=== PATIENT | male | born 1960 | race Caucasian/White ===

== ENCOUNTER → 2018-04-08 13:32 | Outpatient (CLI) | payer OTHER, SELFPAY ==
[2018-04-08 16:03] LABS: Vitamin D 25 Hydroxy (D3) 26.6 ng/mL (30.0-100.0)
== END ==
PROVIDERS: Visit Provider Internal Medicine
DX: C43.4 Malignant melanoma of scalp and neck (principal); C79.9 Secondary malignant neoplasm of unspecified site
CPT/HCPCS: 36415; 82306

== ENCOUNTER → 2019-07-23 10:38 | Outpatient (CLI) | payer OTHER, SELFPAY ==
[2019-07-23 12:06] LABS: Cholesterol 262 mg/dL (140-199); HDL Cholesterol 106 mg/dL (40-60); LDL Cholesterol Calculated 143 mg/dL (<100); Triglycerides 64 mg/dL (35-150)
[2019-07-23 12:23] LABS: Vitamin D 25 Hydroxy (D3) 58.8 ng/mL (30.0-100.0)
[2019-07-23 12:38] LABS: Prostate Specific Antigen Scrn 0.198 ng/mL (0.1-4.0)
[2019-07-25 21:15] LABS: Fecal Immunochemical Test NOT DETECTED (NOT DETECTED)
== END ==
PROVIDERS: PCP Student in an Organized Health Care Education/Training Program; Visit Provider Student in an Organized Health Care Education/Training Program
DX: Z12.11 Encounter for screening for malignant neoplasm of colon (principal); Z12.5 Encounter for screening for malignant neoplasm of prostate; T45.2X1A Poisoning by vitamins, accidental (unintentional), initial encounter; Z13.220 Encounter for screening for lipoid disorders
CPT/HCPCS: 36415; 80061; 82274; 82306; G0103

== ENCOUNTER 2020-09-03 12:30 | Outpatient (RCR) | payer OTHER, SELFPAY ==
--- NOTE | 2020-08-01 16:49 | ST.OPIE ---
Visit Care Team Role Provider Type Michael Moore MD Attending Provider Physician Primary Care Provider Referring Provider Specialty: Internal Medicine Address: [address] [place] [address], [address], [place], [address] Email: [email or web address] Speech-Language Pathology Initial Evaluation [employer]IP[employer] MACHINE Adult Cognitive Linguistic Eval Start: 08/01/20 12:25 Freq: Status: Active Protocol: Document 08/01/20 12:25 NUPUR (Rec: 08/01/20 12:26 NUPUR [email or web address]) Adult Cognitive Linguistic Evaluation Session Time Visit Start Time 12:30 Visit Stop Time 13:20 Total Visit Minutes 50 Visit Information Visit Number Initial Evaluation Plan of Care Dates 08/01/20 - 10/31/20 Insurance Information [facility] Referral Referring Provider Dr. 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 Dementia is atypical (e.g., pt function improves as the day progresses); type has not been identified but suspected Lewey body, per spouse report. The pt and his report the following impacts on function : Pt is, or worries about, losing items at home; experiences WFDs and lags in processing; is reading less; and gets overwhelmed cognitively and subsequently fatigued. He is disoriented to time and space and confused while attempting to navigate his home. Spouse reports he is aware of deficits, which contributes to depression. 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 He is still able to walk several miles at a time and does so with a hired assistant auditor. 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 Assessment Oral Motor Examination Completed No Informal Assessment Receptive Language Normal Slowed processing; WFL in simple conversation. Needs further assessment. Expressive Language Normal Slowed processing; WFL in simple conversation. Needs further assessment. Pragmatic Language Normal Yes Pragmatic Language Impairment(s) Flat affect Speech Normal Yes Cognition Normal No Cognitive Impairment(s) Orientation,Short-term memory, Executive functioning, Reasoning,Thought organization Formal Assessment Standardized Test/Screener Type [facility] Status ([facility]) Administration Complete Results 11/07 - Consistent with dementia Orientation: Oriented to state ; not oriented to day or year (stated 1961) Immediate Memory: 2/5 objects in list Delayed Memory: 0/5 objects in list Mental Calculations: Able to perform simple addition; incorrect subtraction. Divergent Namin animals + 2 insects; repetition of 2 animals Number Reversal: 3 digits Clock Drawing/Executive Function: With effort and extended time, included 12 numbers, all but two of them on the right side of the clock . Unable to set hands. The pt was aware of error in number placement but unable to correct. Visuospatial: Placed an X in the triangle and identified largest shape. Story Recall/Comprehension: 3/ 4 questions. Following administration of the assessment, the pt and his informed that the pt has taken this assessment several times in recent past. The pt stated he remembered the story , and his stated that he is showing improvement in divergent naming, addition, and story recall. Today's score, then, may reflect learning effect. The pt and identified 4 goals for treatment: The pt would like to enjoy reading again and be able to find and read news on the computer. His would like to have the pt increase vocal loudness for speech intelligibility and to improve word recall skills. Education and feedback was provided and POC proposed. Pt and were in agreement. Findings/Results Cognitive Function Severely impaired Findings The pt presents with severe cognitive linguistic deficits secondary to dementia. Expressive and receptive language skills require further assessment. The pt exhibits and spouse reports slow processing speeds impacting his ability to follow and participate in rapid and/or complex conversation. Pt/spouse report reduced reading comprehension and significant word finding difficulties, which further impact his ability to participate in conversations, communicate wants and needs, and enjoy hobbies, thereby decreasing quality of life. Skilled intervention is medically necessary for pt/ family education, to modify the pt's environment, and to train compensatory strategies to increase his independence and ability to participate in functional tasks, and to improve quality of life. Cognitive Communication Deficits Self-awareness of Cognitive- Situational awareness ( Communication Deficits recognition of problem in context;in real time) Impact on Functioning Activity Limits/Particip.Rest. Sev: General Tasks and Demands Household Tasks Interpersonal Interactions Community Comment Pt activity is limited. Per : He is mostly my shadow. Safety Risks Sev: Being Left Alone at Home Reacting to Emergency Managing Medication Traveling Alone in Community Prognosis Prognosis Fair Based on Cognitive status,Family support Plan of Care Speech-Language Treatment Yes Frequency 1x/wk for 8 wks Patient/Caregiver Education Described results of evaluation,Patient expressed understanding of evaluation, Patient expressed agreement with goals and treatment plans ,Family/caregivers expressed understanding of evaluation, Family/caregivers expressed agreement with goals and treatment plan,Patient requires further education/ training,Family/caregivers require further education/ training Short Term Goals 1. The pt will participate in further assessment of expressive and receptive language skills to identify strengths and deficits and guide POC. 2. The pt/ will participate in establishing environmental modifications and external memory tools to increase the pt's independence and ability to perform functional tasks. 3. Using compensatory strategies and/or alternative presentation methods (e.g., audio books), the pt will demonstrate skills adequate to comprehend simple written text to increase his ability to participate in hobbies and improve quality of life. 4. The pt will follow simple written instructions with 80% accuracy to improve independence in completing simple tasks. 5. The pt will perform vocal exercises (e.g., sustained phonation, oral reading of functional phrases) with loudness levels WNL with 80% acc to maintain/improve speech intelligibility. 6. The pt will complete convergent naming tasks using a visual aid and with mod v/v cues with 75% accuracy to improve word recall skills for functional communication. Entomology Professor Goals 1. The pt will use external memory tools in home environment with modified independence to increase orientation, independence, and QOL. 2. The pt will engage with written material, either via independent reading or via audio books/recordings, as desired to increase ability to participate in hobbies and improve QOL, as measured by pt /spouse report and clinician judgment. 3. The pt will exhibit 85% or greater speech intelligibility in functional communication opportunities to increase his ability to express wants/needs , as measured by pt/spouse report and clinician judgment. 4. Using compensatory word recall skills and/or with prompts from others (e.g., phonemic cuing), the pt will exhibit word recall WFL, as measured by pt/spouse report and clinician judgment. Discharge Recommendations Home,Outpatient therapy
--- NOTE | 2020-08-14 10:59 | ST.OPTN ---
Visit Care Team Role Provider Type Michael Moore MD Attending Provider Physician Primary Care Provider Referring Provider Address: [address] [place] [address], [address], [address] MACHINE DESIGN ENGINEER Treatment Note MACHINE DESIGN ENGINEER Treatment Note Start: 08/01/20 12:25 Freq: Status: Active Protocol: Document 08/08/20 14:22 NUPUR (Rec: 08/08/20 14:33 NUPUR [id number]) Speech Pathology Treatment Note Session Time Visit Start Time 13:30 Visit Stop Time 14:18 Total Visit Minutes 48 Visit Information Visit Number 11/18 Setting Treatment Setting Outpatient Care Visit Type Note Type Treatment Note Next Note Type Next Note Type Treatment Note Subjective Identification Type Name,ID Card Observations/Patient Presentation The pt arrived on time accompanied by a friend who was not present during the session. Chief Complaint(s) Language,Cognitive Patient Knowledge/Awareness of MACHINE DESIGN ENGINEER Role Fair in Treatment Objective Treatment Activities Continued assessment of expressive, receptive and cognitive communication skills with a variety of subtests taken from the [place] Diagnostic Aphasia Exam (BDAE) , the Scales of Cognitive and Communicative Ability for Neurorehabilitation (SCCAN), and Cognitive Linguistic Quick Test (CLQT) with the following results: EXPRESSIVE LANGUAGE: Confrontational Namin/10 Picture Identification from Oral Description: 08/18 Convergent Namin/5 Picture Description (Shayruben Harika): Appropriate content with min cues, syntax and word choices/recall WNL. Automatic Speech: Days of week and counting to 21, 100% acc; Pt stated he forgot to which number he was supposed to count, requiring repetition of instructions x1. Written Expression: Pt copied sentence (quick brown oliveros...), wrote name in prink and cursive, and dictated letters and numbers with 100% acc. He correctly spelled 5/6 phonetic words (83% acc, writing OG for go) and 1/3 words of irregular spelling (33% acc, writing knif for knife and cooup for cough). RECEPTIVE LANGUAGE: Story Retell (oral presentation): 10/26 details ( 67% acc) Story Recall (answering questions based on oral story presentation): / Composite Story Retelling score based on CLQT: 60% acc Reading Schedule: 11/09 Pictoral Sign Comprehension: 3 /3 Written Word Recognition: 06/16 Sentence/Phrase Reading Comprehension: 04/14 Medicine Label Reading Comprehension: 1/3 (33%) Following Oral Commands: Simple 2- and 3-step commands, 100%; Complex 2-step command, 4/5 (80%) Auditory Comprehension of Complex Ideational Material: Trained pt in steps to locating news feed on iPad. The pt independently completed task x1 following immediate MACHINE DESIGN ENGINEER demonstration (adequate immediate recall). After that, the pt completed the first step and required verbal instruction with demonstration for remaining steps (reduced delayed recall). Assessment Rehab Potential Fair Impairments Identified Cognitive-Linguistic Skills, Dementia,Expressive Language, Memory - Short Term,Memory - Working,Receptive Language Assessment of Overall Progress Unchanged Assessment of Improvement The pt presents with mild to moderate deficits in expressive and receptive language skills, with deficits increasing as complexity and length of task increases and impacted by memory impairments . The pt exhibited adequate immediate recall and reduced delayed recall of steps to a functional task. Will continue training of task using errorless learning technique and assess ability to follow simple written instructions at next session. Reviewed with Patient Goals,Home Exercise Program Patient/Caregiver Understanding Good Plan Amount of Therapy Recommended 2-3 Months Frequency of Treatment Once a Week Length of Session 45 Minutes Treatment Emphasis Next Session Cont training of news feed on iPad with written instructions Therapeutic Contents Client Education,Cognitive- Linguistic Training,Expressive Language Training,Home Exercise Program,Information Processing,Receptive Language Training Provided Patient/Caregiver Instruction Home Exercise Program,Plan of Care,Questions/Concerns Therapy Recommendations Continue with Current Program
--- NOTE | 2020-08-14 11:09 | ST.OPTN ---
Visit Care Team Role Provider Type Michael Moore MD Attending Provider Physician Primary Care Provider Referring Provider Address: [address] [place] [address], [address], [place], [address] RN CVOR Treatment Note RN CVOR Treatment Note Start: 08/01/20 12:25 Freq: Status: Active Protocol: Document 08/08/20 14:22 NUPUR (Rec: 08/08/20 14:33 NUPUR [email or web address]) Speech Pathology Treatment Note Session Time Visit Start Time 13:30 Visit Stop Time 14:18 Total Visit Minutes 48 Visit Information Visit Number 11/18 Plan of Care Dates 08/01/20 - 10/31/20 Insurance Information [facility] Setting Treatment Setting Outpatient Care Visit Type Note Type Treatment Note Next Note Type Next Note Type Treatment Note General Information General Information The pt is a 59-yr-old male diagnosed last year with 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 Dementia is atypical (e.g., pt function improves as the day progresses); type has not been identified but suspected Lewey body, per spouse report. The pt and his report the following impacts on function : Pt is, or worries about, losing items at home; experiences WFDs and lags in processing; is reading less; and gets overwhelmed cognitively and subsequently fatigued. He is disoriented to time and space and confused while attempting to navigate his home. Spouse reports he is aware of deficits, which contributes to depression. 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 He is still able to walk several miles at a time and does so with a hired orthopedic physician assistant. Subjective Identification Type Name,ID Card Observations/Patient Presentation The pt arrived on time accompanied by a friend who was not present during the session. Chief Complaint(s) Language,Cognitive Rehab Expectation/Goals: Patient Goals Find and read news reports on the computer Rehab Expectation/Goals: Parent/Guardian ` /General Duty Nurse Goals Patient Knowledge/Awareness of RN CVOR Role Fair in Treatment Objective Short Term Goals 1. The pt will participate in further assessment of expressive and receptive language skills to identify strengths and deficits and guide POC. GOAL MET 2. The pt/ will participate in establishing environmental modifications and external memory tools to increase the pt's independence and ability to perform functional tasks. 3. Using compensatory strategies and/or alternative presentation methods (e.g., audio books), the pt will demonstrate skills adequate to comprehend simple written text to increase his ability to participate in hobbies and improve quality of life. 4. The pt will follow simple written instructions with 80% accuracy to improve independence in completing simple tasks. 5. The pt will perform vocal exercises (e.g., sustained phonation, oral reading of functional phrases) with loudness levels WNL with 80% acc to maintain/improve speech intelligibility. 6. The pt will complete convergent naming tasks using a visual aid and with mod v/v cues with 75% accuracy to improve word recall skills for functional communication. Production Intern Goals 1. The pt will use external memory tools in home environment with modified independence to increase orientation, independence, and QOL. 2. The pt will engage with written material, either via independent reading or via audio books/recordings, as desired to increase ability to participate in hobbies and improve QOL, as measured by pt /spouse report and clinician judgment. 3. The pt will exhibit 85% or greater speech intelligibility in functional communication opportunities to increase his ability to express wants/needs , as measured by pt/spouse report and clinician judgment. 4. Using compensatory word recall skills and/or with prompts from others (e.g., phonemic cuing), the pt will exhibit word recall WFL, as measured by pt/spouse report and clinician judgment. Treatment Activities Continued assessment of expressive, receptive and cognitive communication skills with a variety of subtests taken from the [place] Diagnostic Aphasia Exam (BDAE) , the Scales of Cognitive and Communicative Ability for Neurorehabilitation (SCCAN), and Cognitive Linguistic Quick Test (CLQT) with the following results: EXPRESSIVE LANGUAGE: Confrontational Namin/10 Picture Identification from Oral Description: 08/18 Convergent Namin/5 Picture Description (Tina Shabazz): Appropriate content with min cues, syntax and word choices/recall WNL. Automatic Speech: Days of week and counting to 21, 100% acc; Pt stated he forgot to which number he was supposed to count, requiring repetition of instructions x1. Written Expression: Pt copied sentence (quick brown oliveros...), wrote name in prink and cursive, and dictated letters and numbers with 100% acc. He correctly spelled 5/6 phonetic words (83% acc, writing OG for go) and 1/3 words of irregular spelling (33% acc, writing knif for knife and cooup for cough). RECEPTIVE LANGUAGE: Story Retell (oral presentation): 10/26 details ( 67% acc) Story Recall (answering questions based on oral story presentation): 01/09 Composite Story Retelling score based on CLQT: 60% acc Reading Schedule: 11/09 Pictoral Sign Comprehension: Written Word Recognition: 06/16 Sentence/Phrase Reading Comprehension: 04/14 Medicine Label Reading Comprehension: 11/11 (33%) Following Oral Commands: Simple 2- and 3-step commands, 100%; Complex 2-step command, 45 (80%) Auditory Comprehension of Complex Ideational Material: Trained pt in steps to locating news feed on iPad. The pt independently completed task x1 following immediate RN CVOR demonstration (adequate immediate recall). After that, the pt completed the first step and required verbal instruction with demonstration for remaining steps (reduced delayed recall). Assessment Rehab Potential Fair Impairments Identified Cognitive-Linguistic Skills, Dementia,Expressive Language, Memory - Short Term,Memory - Working,Receptive Language Assessment of Overall Progress Unchanged Assessment of Improvement The pt presents with mild to moderate deficits in expressive and receptive language skills, with deficits increasing as complexity and length of task increases and impacted by memory impairments . The pt exhibited adequate immediate recall and reduced delayed recall of steps to a functional task. Will continue training of task using errorless learning technique and assess ability to follow simple written instructions at next session. Reviewed with Patient Goals,Home Exercise Program Patient/Caregiver Understanding Good Plan Amount of Therapy Recommended 2-3 Months Frequency of Treatment Once a Week Length of Session 45 Minutes Treatment Emphasis Next Session Cont training of news feed on iPad with written instructions Therapeutic Contents Client Education,Cognitive- Linguistic Training,Expressive Language Training,Home Exercise Program,Information Processing,Receptive Language Training Provided Patient/Caregiver Instruction Home Exercise Program,Plan of Care,Questions/Concerns Therapy Recommendations Continue with Current Program
--- NOTE | 2020-08-20 18:13 | ST.OPTN ---
Visit Care Team Role Provider Type Michael Moore MD Attending Provider Physician Primary Care Provider Referring Provider Address: [address] [place] [address], [address], [place], [address] [facility] GR[facility]ONE MILL Treatment Note [facility] GR[employer] Treatment Note Start: 08/01/20 12:25 Freq: Status: Active Protocol: Document 08/15/20 17:57 NUPUR (Rec: 08/20/20 18:13 NUPUR [id number]) Speech Pathology Treatment Note Session Time Visit Start Time 14:30 Visit Stop Time 15:15 Total Visit Minutes 45 Visit Information Visit Number 12/19 Plan of Care Dates 08/01/20 - 10/31/20 Insurance Information [facility] Setting Treatment Setting Outpatient Care Visit Type Note Type Treatment Note Next Note Type Next Note Type Treatment Note General Information General Information The pt is a 59-yr-old male diagnosed last year with dementia following ionizing radiation injury from treatment of metastatic malignant melanoma of head and neck (stage 4, early 2014, received care from [facility]). Dementia is atypical (e.g., pt function improves as the day progresses); type has not been identified but suspected Lewey body, per spouse report. The pt and his report the following impacts on function : Pt is, or worries about, losing items at home; experiences WFDs and lags in processing; is reading less; and gets overwhelmed cognitively and subsequently fatigued. He is disoriented to time and space and confused while attempting to navigate his home. Spouse reports he is aware of deficits, which contributes to depression. 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 He is still able to walk several miles at a time and does so with a hired oceanographer assistant. Subjective Identification Type Name,ID Card Observations/Patient Presentation The pt arrived on time accompanied by his , Kathy, who was present and participatory throughout the session. Both the pt and spouse reported the pt experiences periods of losing his place and/or the flow of content when reading, making it very difficult for him to participate in reading tasks per PLOF and as desired for enjoyment. Chief Complaint(s) Language,Cognitive Rehab Expectation/Goals: Patient Goals Find and read news reports on the computer Rehab Expectation/Goals: Parent/Guardian ` /Decal Maker Goals Patient Knowledge/Awareness of [employer] MILL Role Fair in Treatment Objective Short Term Goals 1. The pt will participate in further assessment of expressive and receptive language skills to identify strengths and deficits and guide POC. GOAL MET 2. The pt/ will participate in establishing environmental modifications and external memory tools to increase the pt's independence and ability to perform functional tasks. 3. Using compensatory strategies and/or alternative presentation methods (e.g., audio books), the pt will demonstrate skills adequate to comprehend simple written text to increase his ability to participate in hobbies and improve quality of life. 4. The pt will follow simple written instructions with 80% accuracy to improve independence in completing simple tasks. 5. The pt will perform vocal exercises (e.g., sustained phonation, oral reading of functional phrases) with loudness levels WNL with 80% acc to maintain/improve speech intelligibility. 6. The pt will complete convergent naming tasks using a visual aid and with mod v/v cues with 75% accuracy to improve word recall skills for functional communication. [employer] Goals 1. The pt will use external memory tools in home environment with modified independence to increase orientation, independence, and QOL. 2. The pt will engage with written material, either via independent reading or via audio books/recordings, as desired to increase ability to participate in hobbies and improve QOL, as measured by pt /spouse report and clinician judgment. 3. The pt will exhibit 85% or greater speech intelligibility in functional communication opportunities to increase his ability to express wants/needs , as measured by pt/spouse report and clinician judgment. 4. Using compensatory word recall skills and/or with prompts from others (e.g., phonemic cuing), the pt will exhibit word recall WFL, as measured by pt/spouse report and clinician judgment. Treatment Activities Educated pt/spouse on assessment results. Assessed pt's reading skills with and without use of visual marker. The pt read 2 paragraphs of prose exhibiting 2 episodes of getting stuck, one of which he resolved independently when given extended time. The other episode was unresolved and the pt expressed frustration. He was able to follow [facility] [facility] v/v prompts redirecting him to a reasonable re-starting place and then continued to successfully read the paragraph. When asked to summarize one of the paragraphs, he accurately identified main topic and characters and a delacruz detail. Attempted to continue training of pt in locating news on an iPad with use of simple written instructions and demonstration. However, the pt 's spouse stated she did not feel this was an effective target for tx d/t the pt's inability to progress with reading tasks once he gets stuck. Rationale was based on similar exeriences when the pt attempts to read news on the computer that his sets up for him. The pt agreed , and the task was abandoned. The topic of using audiobooks was revisited, and the [facility]ONE MILL agreed to contact the local library for assesstance and/or resources. Introduced the pt/spouse to [employer] Therapy josesito with presentation of 3 reading tasks, which the pt was able to perform with initial guidance. Agreed that this tool may be good to target the Use it or lose it and Use it and improve it principles of neuroplasticity to slow disease progression. The pt expressed interest, and an account was established for further assessement of its effectiveness. Will f/u at next session. Assessment Patient Response to Treatment Fair Rehab Potential Fair Impairments Identified Cognitive-Linguistic Skills, Dementia,Expressive Language, Memory - Short Term,Memory - Working,Receptive Language Assessment of Overall Progress Unchanged Assessment of Improvement The pt demonstrated strengths in reading aloud and comprehension of short simple texts. However, he exhibited episodes of delayed or loss of processing, which interfered with his ability to complete tasks with enjoyment. Such episodes resulted in increased pt anxiety and expressed frustration. He was stimulable to structured tasks on Constant Therapy training josesito, and agreeable to a trial period of home practice to determine if this may be a good tool for ongoing cognitive and language stimulation to reduce rate of disease progression. Reviewed with Patient Goals,Home Exercise Program Patient/Caregiver Understanding Good Plan Amount of Therapy Recommended 2-3 Months Frequency of Treatment Once a Week Length of Session 45 Minutes Treatment Emphasis Next Session Assess effectiveness of CT josesito Therapeutic Contents Client Education,Cognitive- Linguistic Training,Expressive Language Training,Home Exercise Program,Information Processing,Receptive Language Training Provided Patient/Caregiver Instruction Home Exercise Program,Plan of Care,Questions/Concerns Therapy Recommendations Continue with Current Program
--- NOTE | 2020-08-22 17:40 | ST.OPTN ---
Visit Care Team Role Provider Type Michael Moore MD Attending Provider Physician Primary Care Provider Referring Provider Address: [address] [place] [address], [address], [place], [address] COAT AGENT Treatment Note COAT AGENT Treatment Note Start: 08/01/20 12:25 Freq: Status: Active Protocol: Document 08/22/20 17:14 NUPUR (Rec: 08/22/20 17:40 NUPUR [id number]) Speech Pathology Treatment Note Session Time Visit Start Time 14:30 Visit Stop Time 15:20 Total Visit Minutes 50 Visit Information Visit Number 01/16 Plan of Care Dates 08/01/20 - 10/31/20 Insurance Information [facility] Setting Treatment Setting Outpatient Care Visit Type Note Type Treatment Note Next Note Type Next Note Type Treatment Note General Information General Information The pt is a 59-yr-old male diagnosed last year with dementia following ionizing radiation injury from treatment of metastatic malignant melanoma of head and neck (stage 4, early 2014, received care from [facility]). Dementia is atypical (e.g., pt function improves as the day progresses); type has not been identified but suspected Lewey body, per spouse report. The pt and his report the following impacts on function : Pt is, or worries about, losing items at home; experiences WFDs and lags in processing; is reading less; and gets overwhelmed cognitively and subsequently fatigued. He is disoriented to time and space and confused while attempting to navigate his home. Spouse reports he is aware of deficits, which contributes to depression. 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 He is still able to walk several miles at a time and does so with a hired team assistant. Subjective Identification Type Name,ID Card Observations/Patient Presentation The pt arrived on time. He was brought by a friend who was not present during the session . On Thursday of this week, this COAT AGENT activated a Constant Therapy account for the pt for home practice and informed his of the activation via phone call. The pt reported today that he had not yet used the josesito at home. Chief Complaint(s) Language,Cognitive Rehab Expectation/Goals: Patient Goals Find and read news reports on the computer Rehab Expectation/Goals: Parent/Guardian ` /Preservationist Goals Patient Knowledge/Awareness of COAT AGENT Role Fair in Treatment Objective Short Term Goals 1. The pt will participate in further assessment of expressive and receptive language skills to identify strengths and deficits and guide POC. GOAL MET 2. The pt/ will participate in establishing environmental modifications and external memory tools to increase the pt's independence and ability to perform functional tasks. 3. Using compensatory strategies and/or alternative presentation methods (e.g., audio books), the pt will demonstrate skills adequate to comprehend simple written text to increase his ability to participate in hobbies and improve quality of life. 4. The pt will follow simple written instructions with 80% accuracy to improve independence in completing simple tasks. 5. The pt will perform vocal exercises (e.g., sustained phonation, oral reading of functional phrases) with loudness levels WNL with 80% acc to maintain/improve speech intelligibility. 6. The pt will complete convergent naming tasks using a visual aid and with mod v/v cues with 75% accuracy to improve word recall skills for functional communication. Long-Term Goals 1. The pt will use external memory tools in home environment with modified independence to increase orientation, independence, and QOL. 2. The pt will engage with written material, either via independent reading or via audio books/recordings, as desired to increase ability to participate in hobbies and improve QOL, as measured by pt /spouse report and clinician judgment. 3. The pt will exhibit 85% or greater speech intelligibility in functional communication opportunities to increase his ability to express wants/needs , as measured by pt/spouse report and clinician judgment. 4. Using compensatory word recall skills and/or with prompts from others (e.g., phonemic cuing), the pt will exhibit word recall WFL, as measured by pt/spouse report and clinician judgment. Treatment Activities Attempted to contact Prosthetics Assistantrachael Echavarria at [employer] [facility], who was assisting the clinician and pt/spouse in researching options for audiobooks for the pt to use. Left WERNER msg and discussed her assistance with the pt, who verbalized understanding. Initiated training the pt in use of Constant Therapy josesito on iPad via several tasks including identifying words that do not fit in a category, completing active and passive sentences, sequencing task steps (fo4), and clock math. After initial instruction in each task, the pt navigated the josesito with min-mod cues across all tasks. He exhibited occ lapses in recall of task instructions, requiring assistance. With clinician supervision and min-mod prompts, he completed category task with 83% acc; sentence completion tasks with 100% acc ; sequencing tasks with 92% acc; and clock math with 50% acc. The pt stated he felt the tasks may be too simple but that that was probably a good place to start, and also that he felt he might get bored with the tasks, but he was willing to try using the josesito at home. He stated, It's hard to accept that it's all slipping away. Skilled education and feedback was provided RE cognitive targets of the tasks, and the pt was encouraged to try tasks at home and assured modifications could be made as needed. He was in agreement. Assessment Patient Response to Treatment Fair Rehab Potential Fair Impairments Identified Cognitive-Linguistic Skills, Dementia,Expressive Language, Memory - Short Term,Memory - Working,Receptive Language Assessment of Overall Progress Unchanged Assessment of Improvement The pt demonstrated stimulability to using Constant Therapy josesito as a tool for home practice of cognitive-linguistic skills. With the exception of clock math, the pt exhibited excellent accuracy in tasks; however, he did require frequent reminders of steps to navigate the josesito, such as first touching an answer and then dragging it to its place in a sentence. To keep frustration to a minimum, task difficulty levels will be kept low while the pt becomes familiar with the josesito itself. When accuracy of navigation of the josesito improves, complexity of tasks will be increased to better meet the pt's skills needs and maintain motivation. During clock math task, the pt exhibited difficulty reading clocks. Once time was correctly identified, he performed the math task without error. A clock reading task was added to his HEP; will likely need reinforcement . Reviewed with Patient Goals,Home Exercise Program Patient/Caregiver Understanding Good Plan Amount of Therapy Recommended 2-3 Months Frequency of Treatment Once a Week Length of Session 45 Minutes Treatment Emphasis Next Session Assess effectiveness of CT josesito Therapeutic Contents Client Education,Cognitive- Linguistic Training,Expressive Language Training,Home Exercise Program,Information Processing,Receptive Language Training Provided Patient/Caregiver Instruction Home Exercise Program,Plan of Care,Questions/Concerns Therapy Recommendations Continue with Current Program
--- NOTE | 2020-08-29 17:40 | ST.OPTN ---
Visit Care Team Role Provider Type Michael Moore MD Attending Provider Physician Primary Care Provider Referring Provider Address: [address] [place] [address], [address], [place], [address] KILN OPERATOR HELPER Treatment Note KIL[employer] OPERATOR HELPER Treatment Note Start: 08/01/20 12:25 Freq: Status: Active Protocol: Document 08/29/20 16:44 NUPUR (Rec: 08/29/20 17:39 NUPUR [id number]) Speech Pathology Treatment Note Session Time Visit Start Time 14:30 Visit Stop Time 15:15 Total Visit Minutes 45 Visit Information Visit Number 02/16 Plan of Care Dates 08/01/20 - 10/31/20 Insurance Information [facility] Setting Treatment Setting Outpatient Care Visit Type Note Type Treatment Note Next Note Type Next Note Type Discharge Summary General Information General Information The pt is a 59-yr-old male diagnosed last year with dementia following ionizing radiation injury from treatment of metastatic malignant melanoma of head and neck (stage 4, early 2014, [facility] Dementia is atypical (e.g., pt function improves as the day progresses); type has not been identified but suspected Lewey body, per spouse report. The pt and his report the following impacts on function : Pt is, or worries about, losing items at home; experiences WFDs and lags in processing; is reading less; and gets overwhelmed cognitively and subsequently fatigued. He is disoriented to time and space and confused while attempting to navigate his home. Spouse reports he is aware of deficits, which contributes to depression. 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 He is still able to walk several miles at a time and does so with a hired payroll human resources assistant. Subjective Identification Type Name,ID Card Observations/Patient Presentation The pt arrived on time. He was brought by a friend who was not present during the session . After the session, spoke with pt's and informed her of today's treatment activities and information RE [facility] [employer] sent home with the pt. Agreed that next session would be the pt's last, as he is set up for [facility] and will be starting PT next week. Chief Complaint(s) Language,Cognitive Rehab Expectation/Goals: Patient Goals Find and read news reports on the computer Rehab Expectation/Goals: Parent/Guardian ` /Commissary Clerk Goals Patient Knowledge/Awareness of KILN OPERATOR HELPER Role Fair in Treatment Objective Short Term Goals 1. The pt will participate in further assessment of expressive and receptive language skills to identify strengths and deficits and guide POC. GOAL MET 2. The pt/ will participate in establishing environmental modifications and external memory tools to increase the pt's independence and ability to perform functional tasks. 3. Using compensatory strategies and/or alternative presentation methods (e.g., audio books), the pt will demonstrate skills adequate to comprehend simple written text to increase his ability to participate in hobbies and improve quality of life. 4. The pt will follow simple written instructions with 80% accuracy to improve independence in completing simple tasks. 5. The pt will perform vocal exercises (e.g., sustained phonation, oral reading of functional phrases) with loudness levels WNL with 80% acc to maintain/improve speech intelligibility. 6. The pt will complete convergent naming tasks using a visual aid and with mod v/v cues with 75% accuracy to improve word recall skills for functional communication. [facility] Goals 1. The pt will use external memory tools in home environment with modified independence to increase orientation, independence, and QOL. 2. The pt will engage with written material, either via independent reading or via audio books/recordings, as desired to increase ability to participate in hobbies and improve QOL, as measured by pt /spouse report and clinician judgment. 3. The pt will exhibit 85% or greater speech intelligibility in functional communication opportunities to increase his ability to express wants/needs , as measured by pt/spouse report and clinician judgment. 4. Using compensatory word recall skills and/or with prompts from others (e.g., phonemic cuing), the pt will exhibit word recall WFL, as measured by pt/spouse report and clinician judgment. Treatment Activities Discussed [place] [employer] Library options with pt for increased ease of engaging with books, news, etc . Application was provided for pt and his to review and complete if desired. Continued training pt in use of Constant Therapy HEP josesito. The pt completed paragraph reading and reading everyday items tasks with 100% accuracy , min-mod prompts; identified words that do not belong in lists of 5 words with 100% acc independently; completed picture memory task consisting of 3 picture pairs with 83% acc, min-mod cues. Attempted to complete clock reading task but task proved to be too difficult for the pt and was discontinued. 1:1 instruction of josesito navigation was provided initially and tapered to min- mod prompts as the pt demonstrated increasing familiarity with task sequences over repetitive trials, indicating stimulability to home practice with some independence. Assessment Patient Response to Treatment Good Rehab Potential Fair Impairments Identified Cognitive-Linguistic Skills, Dementia,Expressive Language, Memory - Short Term,Memory - Working,Receptive Language Assessment of Overall Progress Unchanged Assessment of Improvement The pt demonstrated good reading and reading comprehension skills in a variety of simple reading tasks. Performance in picture memory task was better than anticipated and, seemingly, encouraging to the pt. He exhibited significant ability reading time and understanding instruction around time, which is consistent with his deficits in orientation to space and time. The pt recognized his difficulty without ability to correct and the task was discontinued. He demonstrated improving skills in navigating the CT josesito, and it is expected that with repetition, he may be able to navigate with occasional prompts only, making this tool a good candidate for home practice. Reviewed with Patient Goals,Progress Being Made,Home Exercise Program Patient/Caregiver Understanding Good Plan Amount of Therapy Recommended 2-3 Months Frequency of Treatment Once a Week Length of Session 45 Minutes Treatment Emphasis Next Session Modify CT apps for home practice. Therapeutic Contents Client Education,Cognitive- Linguistic Training,Expressive Language Training,Home Exercise Program,Information Processing,Receptive Language Training Provided Patient/Caregiver Instruction Home Exercise Program,Plan of Care,Questions/Concerns Therapy Recommendations Continue with Current Program
--- NOTE | 2020-09-03 16:42 | ST.OPDS ---
Visit Care Team Role Provider Type Michael Moore MD Attending Provider Physician Primary Care Provider Referring Provider Address: [address] [place] [address], [address], [place], [address] [employer] Treatment Note [employer] Treatment Note Start: 08/01/20 12:25 Freq: Status: Active Protocol: Document 09/03/20 15:13 NUPUR (Rec: 09/03/20 15:32 [email or web address]) Speech Pathology Treatment Note Session Time Visit Start Time 12:30 Visit Stop Time 13:30 Total Visit Minutes 60 Visit Information Visit Number 02/16 Plan of Care Dates 08/01/20 - 10/31/20 Insurance Information [facility] Setting Treatment Setting Outpatient Care Visit Type Note Type Discharge Summary General Information General Information The pt is a 59-yr-old male diagnosed last year with 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 Dementia is atypical (e.g., pt function improves as the day progresses); type has not been identified but suspected Lewey body, per spouse report. The pt and his report the following impacts on function : Pt is, or worries about, losing items at home; experiences WFDs and lags in processing; is reading less; and gets overwhelmed cognitively and subsequently fatigued. He is disoriented to time and space and confused while attempting to navigate his home. Spouse reports he is aware of deficits, which contributes to depression. 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 He is still able to walk several miles at a time and does so with a hired editorial assistant. Subjective Identification Type Name,ID Card Observations/Patient Presentation The pt arrived on time accompanied by his who was present throughout the session. She reported receiving written information provided to the pt last week RE [employer] but has not yet had opportunity to connect with them but intends to. She also stated the pt will be getting an iPad so that he will be able to continue with Constant Therapy HEP tasks. Chief Complaint(s) Language,Cognitive Rehab Expectation/Goals: Patient Goals Find and read news reports on the computer Rehab Expectation/Goals: Parent/Guardian ` /School Bus Monitor Goals Patient Knowledge/Awareness of CHIP[employer] FEEDER Role Fair in Treatment Objective Short Term Goals 1. The pt will participate in further assessment of expressive and receptive language skills to identify strengths and deficits and guide POC. GOAL MET 2. The pt/ will participate in establishing environmental modifications and external memory tools to increase the pt's independence and ability to perform functional tasks. GOAL MET 3. Using compensatory strategies and/or alternative presentation methods (e.g., audio books), the pt will demonstrate skills adequate to comprehend simple written text to increase his ability to participate in hobbies and improve quality of life. GOAL NOT MET; PT/SPOUSE REFERRED TO [facility] [employer] [facility] FOR ASSISTANCE 4. The pt will follow simple written instructions with 80% accuracy to improve independence in completing simple tasks. DISCONTINUE GOAL 5. The pt will perform vocal exercises (e.g., sustained phonation, oral reading of functional phrases) with loudness levels WNL with 80% acc to maintain/improve speech intelligibility. GOAL NOT MET ; PT IS READING ALOUD TO SPOUSE AT HOME TO PROMOTE PROGRESS 6. The pt will complete convergent naming tasks using a visual aid and with mod v/v cues with 75% accuracy to improve word recall skills for functional communication. 7. Given Constant Therapy tyson targeting a variety of cognitive communication exercises, the pt will demonstrate ability to navigate the tyson with setup assistance and min-mod v/v cues in order to promote cognitive engagement and decrease rate of decline. GOAL MET 8. The pt will demonstrate ability to perform a variety of HEP tasks via Constant Therapy tyson with 70% or better accuracy across each task in order to promote cognitive engagement and decrease rate of decline. GOAL MET Residential Goals 1. The pt will use external memory tools in home environment with modified independence to increase orientation, independence, and QOL. DISCONTINUE GOAL 2. The pt will engage with written material, either via independent reading or via audio books/recordings, as desired to increase ability to participate in hobbies and improve QOL, as measured by pt /spouse report and clinician judgment. GOAL NOT MET; PT/ SPOUSE REFERRED TO [facility] FOR ASSISTANCE 3. The pt will exhibit 85% or greater speech intelligibility in functional communication opportunities to increase his ability to express wants/needs , as measured by pt/spouse report and clinician judgment. GOAL MET 4. Using compensatory word recall skills and/or with prompts from others (e.g., phonemic cuing), the pt will exhibit word recall WFL, as measured by pt/spouse report and clinician judgment. DISCONTINUE GOAL 5. Given Constant Therapy tyson targeting a variety of cognitive communication exercises, the pt will demonstrate ability to navigate the tyson with setup assistance and min v/v cues in home environment in order to promote cognitive engagement and decrease rate of decline. GOAL NOT MET; PT YET TO OBTAIN DEVICE TO OPERATE TYSON. 6. The pt's will demonstrate ability to assist pt in navigation of Constant Therapy tyson to promote cognitive engagement in functional environment and decrease rate of decline. GOAL MET Treatment Activities Consulted with pt/spouse RE POC. The couple expressed intention to work with [employer] to promote the pt's ability to listen to news and books in order to maintain that enjoyable hobby and reduce frustration involved with independent reading. Per spouse report, the pt is reading aloud daily and, while he continues to occasionally lose his place in reading, he exhibits faster recovery time and greater independence in finding his place and resuming reading. He also maintains adequate loudness most of the time, but does occasionally decrease in loudness over the duration of reading, requiring prompts. Consulted with pt/spouse RE Constant Therapy tasks and provided instruction in its use after d/c from skilled services. The CHIPPER FEEDER's contact information was provided so they could reach the CHIPPER FEEDER with modification needs. HEP tasks were added to the pt 's task list, per his ability to demonstrate adequate performance and understanding. He exhibited ability to perform map reading, 1-back picture recall, and alphabetizing of words with 75 % acc or better with min-mod assistance. He required max assistance to solve story problems; task was discontinued and replaced with simple addition/subtraction tasks. During completion of tasks, the pt's provided appropriate verbal prompts to guide the pt in task completion. She refrained from completing steps for him and only provided verbal prompts, which increases the pt's ability to learn independence. All questions were answered. Assessment Patient Response to Treatment Good Rehab Potential Fair Impairments Identified Cognitive-Linguistic Skills, Dementia,Expressive Language, Memory - Short Term,Memory - Working,Receptive Language Progress Towards Goals Slow Progress Assessment of Overall Progress Improving,Unchanged Assessment of Improvement Over the course of treatment, the pt has consistently exhibited moderate to severe cognitive communication skills consistent with dementia. Basic expressive and receptive language skills for simple conversation have remained strong, as well as the pt's ability to read and comprehend written text. Immediate recall of these texts and other verbal and visual stimuli has generally been strong as well. Greatest areas of difficulty appear with comprehension and recall of information presented at moderate length and complexity , with abstract concepts such as clock reading and clock math, and setting up math problems from stories, and basic mathematic skills. With guidance and rehearsal, the pt demonstrated improving ability to navigate the Constant Therapy tyson, making it a useful tool for a home exercise program. The pt has been cooperative and participatory with all tasks, although he does require external motivation such as verbal encouragement and prompts. He exhibits good awareness of strengths and deficits, which often adds to his frustration and to increased anxiety over the duration of tasks and tx sessions. He is well supported by his , who has been a strong advocate for him and has demonstrated good ability to assist him in completing Constant Therapy tasks. The pt has exhausted benefits for Speech Therapy services at this time and will be discharged from skilled intervention. The couple was encouraged to return as needed in the new year. Reviewed with Patient Goals,Progress Being Made,Home Exercise Program Patient/Caregiver Understanding Good Plan Therapeutic Contents Client Education,Cognitive- Linguistic Training,Expressive Language Training,Home Exercise Program,Information Processing,Receptive Language Training Provided Patient/Caregiver Instruction Home Exercise Program,Plan of Care,Questions/Concerns Therapy Recommendations Discharge to Home Exercise Program
== END 2020-09-24 09:55 ==
LOC: SP 12:30
PROVIDERS: PCP Student in an Organized Health Care Education/Training Program; Referring Provider Student in an Organized Health Care Education/Training Program; Visit Provider Student in an Organized Health Care Education/Training Program
DX: F03.90 Unspecified dementia, unspecified severity, without behavioral disturbance, psychotic disturbance, mood disturbance, and anxiety (principal); W88.8XXA Exposure to other ionizing radiation, initial encounter; F80.9 Developmental disorder of speech and language, unspecified
CPT/HCPCS: 92507; 92523

== ENCOUNTER 2020-09-19 13:30 | Outpatient (RCR) | payer OTHER, SELFPAY ==
--- NOTE | 2020-09-03 15:50 | PT.OIE ---
Current Diagnoses Unspecified dementia without behavioral disturbance (09/03/20) Other abnormalities of gait and mobility (09/03/20) Weakness (09/03/20) Exposure to other ionizing radiation, initial encounter (09/03/20) Past Medical History (Last Updated 07/07/18 @ 09:49 by Ruma Jama) Melanoma (Resolved 2012) Past Surgical History (Last Updated 07/07/18 @ 09:49 by Ruma Jama) History of vasectomy (Resolved) Visit Care Team Role Provider Type Michael Moore MD Attending Provider Physician Primary Care Provider Referring Provider Specialty: Internal Medicine Address: [address] [place] [address], [address], [facility] Email: [email or web address] Physical Therapy Initial Evaluation PT-OP-A Visit Information Start: 09/03/20 07:32 Freq: Status: Active Protocol: Document 09/03/20 13:25 AMB (Rec: 09/04/20 10:13 AMB [id number]) Out-Patient Physical Therapy Visit Information Visit Information Visit Type Initial Evaluation Visit Start Time 13:30 Visit Stop Time 14:15 Total Visit Minutes 45 Visit Number 1 PT-OP-B Current Condition Start: 09/03/20 07:32 Freq: Status: Active Protocol: Document 09/03/20 13:25 AMB (Rec: 09/03/20 13:51 AMB [id number]) Current Condition History of Current Condition Onset Date A year ago Current Complaints progressively declining activity, gait changes History of Current Condition Mendel presents with his . She provides a majority of the history. He has been diagnosed with progressive dementia. Historically he loved hiking, and can continue to do so if he is with someone. A couple of years ago walking started changing. Previously an avid hiker, but anxious about not knowing where he is currently. They are hoping to get him moving more. He denies any falls. Treatment Goals Patient/Caregiver Goals Be able to exercise, do yoga, improve walking Prior Functional Status Baseline Function- ADL's Modified Independent Baseline Function- Mobility Modified Independent Personal Factors Other Personal Factors That May Effect Previous cancer- metastatic Therapy/Recovery melanoma PT-OP-C Subjective Start: 09/03/20 07:32 Freq: Status: Active Protocol: Document 09/03/20 13:25 AMB (Rec: 09/04/20 10:13 AMB [id number]) OP-PT Pain Assessment Comments Pain Comments Pt denies pain PT-OP-D Balance Start: 09/03/20 07:32 Freq: Status: Active Protocol: Document 09/03/20 13:30 AMB (Rec: 09/04/20 15:50 AMB [email or web address]) Balance Tests mCTSIB mCTSIB Position 1 30 sec mCTSIB Position 2 30 sec Single Limb Standing Single Limb- Right 10 seconds Single Limb- Left 10 seconds- LOB getting into position but able to self correct PT-OP-E Functional Tests Start: 09/03/20 07:32 Freq: Status: Active Protocol: Document 09/03/20 13:30 AMB (Rec: 09/04/20 15:50 AMB [email or web address]) Functional Tests 2 Minute Walk Test Distance 417 Device Used none Comments 396 feet with dual tasking of counting 10 Meter Walk Test Distance 6 seconds Device Used none PT-OP-G Mobility & Gait Start: 09/03/20 07:32 Freq: Status: Active Protocol: Document 09/03/20 13:30 AMB (Rec: 09/04/20 15:50 AMB [email or web address]) OP Gait Assessment Comments Gait Comments Generally stiff gait pattern with no arm swing, better when not made to pathfind, one step instructions best, pt fails with multistep instructions PT-OP-J Posture/Palpation/Skin Start: 09/03/20 07:32 Freq: Status: Active Protocol: Document 09/03/20 13:30 AMB (Rec: 09/04/20 15:50 AMB [email or web address]) Posture Evaluation Comments Posture Comments Flat lumbar spine and forward head in standing PT-OP-M Strength Start: 09/03/20 07:32 Freq: Status: Active Protocol: Document 09/03/20 13:30 AMB (Rec: 09/04/20 15:50 AMB [email or web address]) Hip Strength Hip Manual Muscle Testing Right Flexion (L2) 4+ Good+ Extension (S1) 4 Good Abduction 4+ Good+ Adduction 4+ Good+ Left Flexion (L2) 4+ Good+ Extension (S1) 4 Good Abduction 4+ Good+ Adduction 4+ Good+ Knee Strength Knee Manual Muscle Testing Right Flexion (S2) 5 Normal Extension (L3) 5 Normal Left Flexion (S2) 5 Normal PT-OP-T Assessment and Plan Start: 09/03/20 07:32 Freq: Status: Active Protocol: Document 09/03/20 13:25 AMB (Rec: 09/04/20 10:13 AMB [id number]) Physical Therapy Assessment Rehab Potential Rehabilitation Potential Fair Evaluation Complexity Number of Personal Factors/Comorbidities 1-2 Number of Body Systems Impaired 3 Clinical Presentation at Evaluation Evolving Impairments Impairments Activity Tolerance,Functional Activities,Functional Mobility ,Gait Other Concerns Barriers to Rehabilitation slow processing speed Goals Two Impairment Gait Short Term Goal (STG) Mendel will ambulate over smooth terrain with good speed and arm swing. STG Duration 4 weeks Care Home Goal (LTG) Mendel will ambulate over uneven terrain without loss of balance and with good speed and arm swing. LTG Duration 8 weeks One Impairment lacks exercise program Short Term Goal (STG) Mendel will be consitent with an appropriate HEP that he does with his /caregiver. STG Duration 4 weeks Assessment Summary Assessment Mendel presents with slow processing and a recent reduction in overall activity. His gait is stiff and slow, especially when he needs to pathfind. When he is given a specific task with few distractions, like walk to the end of the hallway he walks quickly but without any trunk rotation or arm swing. He was previously an avid hiker and enjoyed yoga, but has been unable to continue with these activities. He will benefit from an appropriate exercise program that both his and his caregiver will be instructed in how to help him with. Physical Therapy Plan Frequency and Duration Frequency of Treatment 2x/Week Duration of Treatment 6 weeks Plan of Care Start Date 09/03/20 Plan of Care End Date 10/15/20 Therapeutic Interventions Therapeutic Interventions Balance Training,Coordination Training,Gait Training,Manual Therapy,Neuromuscular Re- education,Self-Care/Home Management,Therapeutic Activities,Therapeutic Exercises Next Visit Focus/Plan Next Note Type Treatment Note Next Visit Plan Begin HEP instruction with yoga and coordination/gait activities
--- NOTE | 2020-09-03 15:53 | PT.OPPOC ---
Physical, Occupational & Speech Therapy At [facility] Current Diagnoses Unspecified dementia without behavioral disturbance (09/03/20) Other abnormalities of gait and mobility (09/03/20) Weakness (09/03/20) Exposure to other ionizing radiation, initial encounter (09/03/20) Visit Care Team Role Provider Type Michael Moore MD Attending Provider Physician Primary Care Provider Referring Provider Specialty: Internal Medicine Address: [address] [place] [address], [address], [place], [address] Email: [email or web address] Plan Of Care PT-OP-T Assessment and Plan Start: 09/03/20 07:32 Freq: Status: Active Protocol: Document 09/03/20 13:25 AMB (Rec: 09/04/20 10:13 AMB [id number]) Physical Therapy Assessment Rehab Potential Rehabilitation Potential Fair Evaluation Complexity Number of Personal Factors/Comorbidities 1-2 Number of Body Systems Impaired 3 Clinical Presentation at Evaluation Evolving Impairments Impairments Activity Tolerance,Functional Activities,Functional Mobility ,Gait Other Concerns Barriers to Rehabilitation slow processing speed Goals Two Impairment Gait Short Term Goal (STG) Mendel will ambulate over smooth terrain with good speed and arm swing. STG Duration 4 weeks Professional Wrestler Goal (LTG) Mendel will ambulate over uneven terrain without loss of balance and with good speed and arm swing. LTG Duration 8 weeks One Impairment lacks exercise program Short Term Goal (STG) Mendel will be consitent with an appropriate HEP that he does with his /caregiver. STG Duration 4 weeks Assessment Summary Assessment Mendel presents with slow processing and a recent reduction in overall activity. His gait is stiff and slow, especially when he needs to pathfind. When he is given a specific task with few distractions, like walk to the end of the hallway he walks quickly but without any trunk rotation or arm swing. He was previously an avid hiker and enjoyed yoga, but has been unable to continue with these activities. He will benefit from an appropriate exercise program that both his and his caregiver will be instructed in how to help him with. Physical Therapy Plan Frequency and Duration Frequency of Treatment 2x/Week Duration of Treatment 6 weeks Plan of Care Start Date 09/03/20 Plan of Care End Date 10/15/20 Therapeutic Interventions Therapeutic Interventions Balance Training,Coordination Training,Gait Training,Manual Therapy,Neuromuscular Re- education,Self-Care/Home Management,Therapeutic Activities,Therapeutic Exercises Next Visit Focus/Plan Next Note Type Treatment Note Next Visit Plan Begin HEP instruction with yoga and coordination/gait activities Plan of Care Dates Plan of Care Start Date 09/03/20 Plan of Care End Date 10/15/20 Electronically Signed by: Michelle Zimmerman, PT 09/04/20 3227 Please Sign and Return: I have reviewed this Plan of Care and certify that the skilled therapy services above are required to meet the patient?s needs. Physician Signature Date Printed Name and Credentials Clinical Instructor Signature Printed Name and Credentials
--- NOTE | 2020-09-06 13:41 | PT.OTN ---
Current Diagnoses Unspecified dementia without behavioral disturbance (09/06/20) Other abnormalities of gait and mobility (09/06/20) Weakness (09/06/20) Exposure to other ionizing radiation, initial encounter (09/06/20) Physical Therapy Treatment Note PT-OP-A Visit Information Start: 09/03/20 07:32 Freq: Status: Active Protocol: Document 09/06/20 12:45 AMB (Rec: 09/06/20 13:29 AMB [id number]) Out-Patient Physical Therapy Visit Information Visit Information Visit Type Treatment Note Visit Start Time 12:45 Visit Stop Time 13:30 Total Visit Minutes 45 Visit Number 2 PT-OP-B Current Condition Start: 09/03/20 07:32 Freq: Status: Active Protocol: Document 09/03/20 13:25 AMB (Rec: 09/03/20 13:51 AMB [id number]) Current Condition History of Current Condition Onset Date A year ago Current Complaints progressively declining activity, gait changes History of Current Condition Mendel presents with his . She provides a majority of the history. He has been diagnosed with progressive dementia. Historically he loved hiking, and can continue to do so if he is with someone. A couple of years ago walking started changing. Previously an avid hiker, but anxious about not knowing where he is currently. They are hoping to get him moving more. He denies any falls. Treatment Goals Patient/Caregiver Goals Be able to exercise, do yoga, improve walking Prior Functional Status Baseline Function- ADL's Modified Independent Baseline Function- Mobility Modified Independent Personal Factors Other Personal Factors That May Effect Previous cancer- metastatic Therapy/Recovery melanoma PT-OP-C Subjective Start: 09/03/20 07:32 Freq: Status: Active Protocol: Document 09/06/20 12:45 AMB (Rec: 09/06/20 13:29 AMB [id number]) OP-PT Subjective Patient Comments Patient Comments Mendel attends with his Kathy, no new complaints. PT-OP-D Balance Start: 09/03/20 07:32 Freq: Status: Active Protocol: Document 09/03/20 13:30 AMB (Rec: 09/04/20 15:50 AMB [email or web address]) Balance Tests mCTSIB mCTSIB Position 1 30 sec mCTSIB Position 2 30 sec Single Limb Standing Single Limb- Right 10 seconds Single Limb- Left 10 seconds- LOB getting into position but able to self correct PT-OP-E Functional Tests Start: 09/03/20 07:32 Freq: Status: Active Protocol: Document 09/03/20 13:30 AMB (Rec: 09/04/20 15:50 AMB [email or web address]) Functional Tests 2 Minute Walk Test Distance 417 Device Used none Comments 396 feet with dual tasking of counting 10 Meter Walk Test Distance 6 seconds Device Used none PT-OP-G Mobility & Gait Start: 09/03/20 07:32 Freq: Status: Active Protocol: Document 09/03/20 13:30 AMB (Rec: 09/04/20 15:50 AMB [email or web address]) OP Gait Assessment Comments Gait Comments Generally stiff gait pattern with no arm swing, better when not made to pathfind, one step instructions best, pt fails with multistep instructions PT-OP-J Posture/Palpation/Skin Start: 09/03/20 07:32 Freq: Status: Active Protocol: Document 09/03/20 13:30 AMB (Rec: 09/04/20 15:50 AMB [email or web address]) Posture Evaluation Comments Posture Comments Flat lumbar spine and forward head in standing PT-OP-M Strength Start: 09/03/20 07:32 Freq: Status: Active Protocol: Document 09/03/20 13:30 AMB (Rec: 09/04/20 15:50 AMB [email or web address]) Hip Strength Hip Manual Muscle Testing Right Flexion (L2) 4+ Good+ Extension (S1) 4 Good Abduction 4+ Good+ Adduction 4+ Good+ Left Flexion (L2) 4+ Good+ Extension (S1) 4 Good Abduction 4+ Good+ Adduction 4+ Good+ Knee Strength Knee Manual Muscle Testing Right Flexion (S2) 5 Normal Extension (L3) 5 Normal Left Flexion (S2) 5 Normal PT-OP-Q Treatments Start: 09/03/20 07:32 Freq: Status: Active Protocol: Document 09/06/20 12:45 AMB (Rec: 09/06/20 13:41 AMB [email or web address]) Therapeutic Exercises Supine Exercises 2 Supine Exercise Name lower trunk rotation Reps/Minutes 20 1 Supine Exercise Name piriformis stretch Reps/Minutes 30x3 Other Exercises 4 Other Exercise Name bird dog Reps/Minutes 10 3 Other Exercise Name cat cow Reps/Minutes 15 2 Other Exercise Name cobra pose Reps/Minutes 10x4 1 Other Exercise Name afshin pose Reps/Minutes 30x3 Comments on large plinth not on floor Neuro Re-Education Treatment Other Activities 4 Details weight shift in stride stance Comments with opposite arm swing. 3 Details stepping laterally Comments large knee iwht UE abduction 2 Details stepping forward Comments large knee, with UE abduction 1 Details floor to ceiling Comments 5 PT-OP-T Assessment and Plan Start: 09/03/20 07:32 Freq: Status: Active Protocol: Document 09/06/20 12:45 AMB (Rec: 09/06/20 13:41 AMB [email or web address]) Physical Therapy Assessment Assessment Summary Assessment Mendel was able to perform all exercises. Used limited verbal cues and encouraged to mirror exercises and avoid excessive verbal instruction to avoid frustration. Physical Therapy Plan Next Visit Focus/Plan Next Note Type Treatment Note Next Visit Plan Follow up on HEP instruction with yoga and coordination/ gait activities, could consider yoga poses on floor to practice floor transfer
--- NOTE | 2020-09-10 15:45 | PT.OTN ---
Current Diagnoses Unspecified dementia without behavioral disturbance (09/10/20) Other abnormalities of gait and mobility (09/10/20) Weakness (09/10/20) Exposure to other ionizing radiation, initial encounter (09/10/20) Physical Therapy Treatment Note PT-OP-A Visit Information Start: 09/03/20 07:32 Freq: Status: Active Protocol: Document 09/10/20 13:30 AMB (Rec: 09/10/20 14:18 AMB [id number]) Out-Patient Physical Therapy Visit Information Visit Information Visit Type Treatment Note Visit Start Time 13:30 Visit Stop Time 14:15 Total Visit Minutes 45 Visit Number 3 PT-OP-B Current Condition Start: 09/03/20 07:32 Freq: Status: Active Protocol: Document 09/03/20 13:25 AMB (Rec: 09/03/20 13:51 AMB [id number]) Current Condition History of Current Condition Onset Date A year ago Current Complaints progressively declining activity, gait changes History of Current Condition Mendel presents with his . She provides a majority of the history. He has been diagnosed with progressive dementia. Historically he loved hiking, and can continue to do so if he is with someone. A couple of years ago walking started changing. Previously an avid hiker, but anxious about not knowing where he is currently. They are hoping to get him moving more. He denies any falls. Treatment Goals Patient/Caregiver Goals Be able to exercise, do yoga, improve walking Prior Functional Status Baseline Function- ADL's Modified Independent Baseline Function- Mobility Modified Independent Personal Factors Other Personal Factors That May Effect Previous cancer- metastatic Therapy/Recovery melanoma PT-OP-C Subjective Start: 09/03/20 07:32 Freq: Status: Active Protocol: Document 09/10/20 13:30 AMB (Rec: 09/10/20 14:18 AMB [id number]) OP-PT Subjective Patient Comments Patient Comments Mendel attends PT alone. He states he didn't go on any walks, but they did the exercises twice in the last 3 days. PT-OP-D Balance Start: 09/03/20 07:32 Freq: Status: Active Protocol: Document 09/03/20 13:30 AMB (Rec: 09/04/20 15:50 AMB [email or web address]) Balance Tests mCTSIB mCTSIB Position 1 30 sec mCTSIB Position 2 30 sec Single Limb Standing Single Limb- Right 10 seconds Single Limb- Left 10 seconds- LOB getting into position but able to self correct PT-OP-E Functional Tests Start: 09/03/20 07:32 Freq: Status: Active Protocol: Document 09/03/20 13:30 AMB (Rec: 09/04/20 15:50 AMB [email or web address]) Functional Tests 2 Minute Walk Test Distance 417 Device Used none Comments 396 feet with dual tasking of counting 10 Meter Walk Test Distance 6 seconds Device Used none PT-OP-G Mobility & Gait Start: 09/03/20 07:32 Freq: Status: Active Protocol: Document 09/03/20 13:30 AMB (Rec: 09/04/20 15:50 AMB [email or web address]) OP Gait Assessment Comments Gait Comments Generally stiff gait pattern with no arm swing, better when not made to pathfind, one step instructions best, pt fails with multistep instructions PT-OP-J Posture/Palpation/Skin Start: 09/03/20 07:32 Freq: Status: Active Protocol: Document 09/03/20 13:30 AMB (Rec: 09/04/20 15:50 AMB [email or web address]) Posture Evaluation Comments Posture Comments Flat lumbar spine and forward head in standing PT-OP-M Strength Start: 09/03/20 07:32 Freq: Status: Active Protocol: Document 09/03/20 13:30 AMB (Rec: 09/04/20 15:50 AMB [email or web address]) Hip Strength Hip Manual Muscle Testing Right Flexion (L2) 4+ Good+ Extension (S1) 4 Good Abduction 4+ Good+ Adduction 4+ Good+ Left Flexion (L2) 4+ Good+ Extension (S1) 4 Good Abduction 4+ Good+ Adduction 4+ Good+ Knee Strength Knee Manual Muscle Testing Right Flexion (S2) 5 Normal Extension (L3) 5 Normal Left Flexion (S2) 5 Normal PT-OP-Q Treatments Start: 09/03/20 07:32 Freq: Status: Active Protocol: Document 09/10/20 13:30 AMB (Rec: 09/10/20 15:44 AMB [email or web address]) Therapeutic Exercises Other Exercises 5 Other Exercise Name open book in quadruped Reps/Minutes 10 3 Other Exercise Name cat cow Reps/Minutes 15 2 Other Exercise Name cobra pose Reps/Minutes 10x4 1 Other Exercise Name afshin pose Reps/Minutes 30x3 Comments on large plinth not on floor Neuro Re-Education Treatment Balance Activities 2 Details modified tandem stance Comments pt did well 1 Details single leg stance Comments difficult for patient did not give as HEP Other Activities 4 Details weight shift in stride stance Comments with opposite arm swing. 3 Details stepping laterally Comments large knee iwht UE abduction 2 Details stepping forward Comments large knee, with UE abduction PT-OP-T Assessment and Plan Start: 09/03/20 07:32 Freq: Status: Active Protocol: Document 09/10/20 13:30 AMB (Rec: 09/10/20 14:18 AMB [id number]) Physical Therapy Assessment Assessment Summary Assessment Mendel was able to perform all exercises, but still needs constant cues. Single leg stance was too challenging for HEP at this time, but did fine with modified tandem. Was able to perform floor transfer without issue. Physical Therapy Plan Next Visit Focus/Plan Next Note Type Treatment Note Next Visit Plan Follow up on HEP instruction with yoga and coordination/ gait activities
--- NOTE | 2020-09-12 15:48 | PT.OTN ---
Current Diagnoses Unspecified dementia without behavioral disturbance (09/12/20) Other abnormalities of gait and mobility (09/12/20) Weakness (09/12/20) Exposure to other ionizing radiation, initial encounter (09/12/20) Physical Therapy Treatment Note PT-OP-A Visit Information Start: 09/03/20 07:32 Freq: Status: Active Protocol: Document 09/12/20 13:34 AMB (Rec: 09/12/20 13:48 AMB [id number]) Out-Patient Physical Therapy Visit Information Visit Information Visit Type Treatment Note Visit Start Time 13:30 Visit Stop Time 14:15 Total Visit Minutes 45 Visit Number 4 PT-OP-B Current Condition Start: 09/03/20 07:32 Freq: Status: Active Protocol: Document 09/03/20 13:25 AMB (Rec: 09/03/20 13:51 AMB [id number]) Current Condition History of Current Condition Onset Date A year ago Current Complaints progressively declining activity, gait changes History of Current Condition Mendel presents with his . She provides a majority of the history. He has been diagnosed with progressive dementia. Historically he loved hiking, and can continue to do so if he is with someone. A couple of years ago walking started changing. Previously an avid hiker, but anxious about not knowing where he is currently. They are hoping to get him moving more. He denies any falls. Treatment Goals Patient/Caregiver Goals Be able to exercise, do yoga, improve walking Prior Functional Status Baseline Function- ADL's Modified Independent Baseline Function- Mobility Modified Independent Personal Factors Other Personal Factors That May Effect Previous cancer- metastatic Therapy/Recovery melanoma PT-OP-C Subjective Start: 09/03/20 07:32 Freq: Status: Active Protocol: Document 09/12/20 13:34 AMB (Rec: 09/12/20 13:48 AMB [id number]) OP-PT Subjective Patient Comments Patient Comments Mendel attends PT alone, no questions about exercises. PT-OP-D Balance Start: 09/03/20 07:32 Freq: Status: Active Protocol: Document 09/03/20 13:30 AMB (Rec: 09/04/20 15:50 AMB [email or web address]) Balance Tests mCTSIB mCTSIB Position 1 30 sec mCTSIB Position 2 30 sec Single Limb Standing Single Limb- Right 10 seconds Single Limb- Left 10 seconds- LOB getting into position but able to self correct PT-OP-E Functional Tests Start: 09/03/20 07:32 Freq: Status: Active Protocol: Document 09/03/20 13:30 AMB (Rec: 09/04/20 15:50 AMB [email or web address]) Functional Tests 2 Minute Walk Test Distance 417 Device Used none Comments 396 feet with dual tasking of counting 10 Meter Walk Test Distance 6 seconds Device Used none PT-OP-G Mobility & Gait Start: 09/03/20 07:32 Freq: Status: Active Protocol: Document 09/03/20 13:30 AMB (Rec: 09/04/20 15:50 AMB [email or web address]) OP Gait Assessment Comments Gait Comments Generally stiff gait pattern with no arm swing, better when not made to pathfind, one step instructions best, pt fails with multistep instructions PT-OP-J Posture/Palpation/Skin Start: 09/03/20 07:32 Freq: Status: Active Protocol: Document 09/03/20 13:30 AMB (Rec: 09/04/20 15:50 AMB [email or web address]) Posture Evaluation Comments Posture Comments Flat lumbar spine and forward head in standing PT-OP-M Strength Start: 09/03/20 07:32 Freq: Status: Active Protocol: Document 09/03/20 13:30 AMB (Rec: 09/04/20 15:50 AMB [email or web address]) Hip Strength Hip Manual Muscle Testing Right Flexion (L2) 4+ Good+ Extension (S1) 4 Good Abduction 4+ Good+ Adduction 4+ Good+ Left Flexion (L2) 4+ Good+ Extension (S1) 4 Good Abduction 4+ Good+ Adduction 4+ Good+ Knee Strength Knee Manual Muscle Testing Right Flexion (S2) 5 Normal Extension (L3) 5 Normal Left Flexion (S2) 5 Normal PT-OP-Q Treatments Start: 09/03/20 07:32 Freq: Status: Active Protocol: Document 09/12/20 13:30 AMB (Rec: 09/12/20 15:48 AMB [email or web address]) Therapeutic Exercises Supine Exercises 4 Supine Exercise Name supine bike Reps/Minutes 30x2 3 Supine Exercise Name hamstring stretch Reps/Minutes 30x2 2 Supine Exercise Name lower trunk rotation Reps/Minutes 20 1 Supine Exercise Name piriformis stretch Reps/Minutes 30x3 Other Exercises 5 Other Exercise Name open book in quadruped Reps/Minutes 10 4 Other Exercise Name bird dog Reps/Minutes 10 3 Other Exercise Name cat cow Reps/Minutes 15 2 Other Exercise Name cobra pose Reps/Minutes 10x4 1 Other Exercise Name afshin pose Reps/Minutes 30x3 Comments on large plinth not on floor Gait Training Gait Activity 1 Description walking with head turns Comments horizontal and vertical head turns Neuro Re-Education Treatment Balance Activities 2 Details modified tandem stance Comments pt did well 1 Details single leg stance Comments difficult for patient did not give as HEP Other Activities 4 Details weight shift in stride stance Comments with opposite arm swing. 1 Details floor to ceiling Comments 5 PT-OP-T Assessment and Plan Start: 09/03/20 07:32 Freq: Status: Active Protocol: Document 09/12/20 13:30 AMB (Rec: 09/12/20 15:48 AMB [email or web address]) Physical Therapy Assessment Assessment Summary Assessment Mendel got pretty hot with his mask today after core exercises. Offered water, but that may be a limiting factor with his walking and exercise , hoping his caregiver will bring him next time, as his carryover with exercises is limited. Physical Therapy Plan Next Visit Focus/Plan Next Note Type Treatment Note Next Visit Plan Follow up on HEP instruction with yoga and coordination/ gait activities
--- NOTE | 2020-09-17 15:56 | PT.OTN ---
Current Diagnoses Unspecified dementia without behavioral disturbance (09/17/20) Other abnormalities of gait and mobility (09/17/20) Weakness (09/17/20) Exposure to other ionizing radiation, initial encounter (09/17/20) Physical Therapy Treatment Note PT-OP-A Visit Information Start: 09/03/20 07:32 Freq: Status: Active Protocol: Document 09/17/20 13:35 AMB (Rec: 09/17/20 15:35 AMB [email or web address]) Out-Patient Physical Therapy Visit Information Visit Information Visit Type Treatment Note Visit Start Time 13:35 Visit Stop Time 14:15 Total Visit Minutes 40 Visit Number 5 PT-OP-B Current Condition Start: 09/03/20 07:32 Freq: Status: Active Protocol: Document 09/03/20 13:25 AMB (Rec: 09/03/20 13:51 AMB [id number]) Current Condition History of Current Condition Onset Date A year ago Current Complaints progressively declining activity, gait changes History of Current Condition Mendel presents with his . She provides a majority of the history. He has been diagnosed with progressive dementia. Historically he loved hiking, and can continue to do so if he is with someone. A couple of years ago walking started changing. Previously an avid hiker, but anxious about not knowing where he is currently. They are hoping to get him moving more. He denies any falls. Treatment Goals Patient/Caregiver Goals Be able to exercise, do yoga, improve walking Prior Functional Status Baseline Function- ADL's Modified Independent Baseline Function- Mobility Modified Independent Personal Factors Other Personal Factors That May Effect Previous cancer- metastatic Therapy/Recovery melanoma PT-OP-C Subjective Start: 09/03/20 07:32 Freq: Status: Active Protocol: Document 09/17/20 13:35 AMB (Rec: 09/17/20 15:35 AMB [email or web address]) OP-PT Subjective Patient Comments Patient Comments Mendel attends with Kamran who will be helping him with exercises PT-OP-D Balance Start: 09/03/20 07:32 Freq: Status: Active Protocol: Document 09/03/20 13:30 AMB (Rec: 09/04/20 15:50 AMB [email or web address]) Balance Tests mCTSIB mCTSIB Position 1 30 sec mCTSIB Position 2 30 sec Single Limb Standing Single Limb- Right 10 seconds Single Limb- Left 10 seconds- LOB getting into position but able to self correct PT-OP-E Functional Tests Start: 09/03/20 07:32 Freq: Status: Active Protocol: Document 09/03/20 13:30 AMB (Rec: 09/04/20 15:50 AMB [email or web address]) Functional Tests 2 Minute Walk Test Distance 417 Device Used none Comments 396 feet with dual tasking of counting 10 Meter Walk Test Distance 6 seconds Device Used none PT-OP-G Mobility & Gait Start: 09/03/20 07:32 Freq: Status: Active Protocol: Document 09/03/20 13:30 AMB (Rec: 09/04/20 15:50 AMB [email or web address]) OP Gait Assessment Comments Gait Comments Generally stiff gait pattern with no arm swing, better when not made to pathfind, one step instructions best, pt fails with multistep instructions PT-OP-J Posture/Palpation/Skin Start: 09/03/20 07:32 Freq: Status: Active Protocol: Document 09/03/20 13:30 AMB (Rec: 09/04/20 15:50 AMB [email or web address]) Posture Evaluation Comments Posture Comments Flat lumbar spine and forward head in standing PT-OP-M Strength Start: 09/03/20 07:32 Freq: Status: Active Protocol: Document 09/03/20 13:30 AMB (Rec: 09/04/20 15:50 AMB [email or web address]) Hip Strength Hip Manual Muscle Testing Right Flexion (L2) 4+ Good+ Extension (S1) 4 Good Abduction 4+ Good+ Adduction 4+ Good+ Left Flexion (L2) 4+ Good+ Extension (S1) 4 Good Abduction 4+ Good+ Adduction 4+ Good+ Knee Strength Knee Manual Muscle Testing Right Flexion (S2) 5 Normal Extension (L3) 5 Normal Left Flexion (S2) 5 Normal PT-OP-Q Treatments Start: 09/03/20 07:32 Freq: Status: Active Protocol: Document 09/17/20 13:30 AMB (Rec: 09/17/20 15:56 AMB [email or web address]) Therapeutic Exercises Standing Exercises 1 Standing Exercise Name lunges Reps/Minutes 10x2 Other Exercises 6 Other Exercise Name downward dog Reps/Minutes 15x2 4 Other Exercise Name bird dog Reps/Minutes 10 3 Other Exercise Name cat cow Reps/Minutes 15 2 Other Exercise Name cobra pose Reps/Minutes 10x4 1 Other Exercise Name afshin pose Reps/Minutes 30x3 Neuro Re-Education Treatment Other Activities 4 Details weight shift in stride stance Comments with opposite arm swing. 3 Details stepping laterally Comments large knee iwht UE abduction 2 Details stepping forward Comments large knee, with UE abduction 1 Details floor to ceiling Comments 5 PT-OP-T Assessment and Plan Start: 09/03/20 07:32 Freq: Status: Active Protocol: Document 09/17/20 13:30 AMB (Rec: 09/17/20 15:56 AMB [email or web address]) Physical Therapy Assessment Assessment Summary Assessment Mendel was able to do exercises well today, stated most of them were medium as far as difficulty. Physical Therapy Plan Next Visit Focus/Plan Next Note Type Treatment Note Next Visit Plan Make sure pt's caregiver is appropriate with exercise
--- NOTE | 2020-09-20 08:16 | PT.OTN ---
Current Diagnoses Unspecified dementia without behavioral disturbance (09/19/20) Other abnormalities of gait and mobility (09/19/20) Weakness (09/19/20) Exposure to other ionizing radiation, initial encounter (09/19/20) Physical Therapy Treatment Note PT-OP-A Visit Information Start: 09/03/20 07:32 Freq: Status: Active Protocol: Document 09/19/20 13:30 AMB (Rec: 09/20/20 08:16 AMB [email or web address]) Out-Patient Physical Therapy Visit Information Visit Information Visit Type Treatment Note Visit Start Time 13:35 Visit Stop Time 14:15 Total Visit Minutes 40 Visit Number 6 PT-OP-B Current Condition Start: 09/03/20 07:32 Freq: Status: Active Protocol: Document 09/03/20 13:25 AMB (Rec: 09/03/20 13:51 AMB [id number]) Current Condition History of Current Condition Onset Date A year ago Current Complaints progressively declining activity, gait changes History of Current Condition Mendel presents with his . She provides a majority of the history. He has been diagnosed with progressive dementia. Historically he loved hiking, and can continue to do so if he is with someone. A couple of years ago walking started changing. Previously an avid hiker, but anxious about not knowing where he is currently. They are hoping to get him moving more. He denies any falls. Treatment Goals Patient/Caregiver Goals Be able to exercise, do yoga, improve walking Prior Functional Status Baseline Function- ADL's Modified Independent Baseline Function- Mobility Modified Independent Personal Factors Other Personal Factors That May Effect Previous cancer- metastatic Therapy/Recovery melanoma PT-OP-C Subjective Start: 09/03/20 07:32 Freq: Status: Active Protocol: Document 09/19/20 13:30 AMB (Rec: 09/20/20 08:16 AMB [email or web address]) OP-PT Subjective Patient Comments Patient Comments Mendel states he is ready to discharge, he states he did the exercises with his , and they do not have any questions. PT-OP-D Balance Start: 09/03/20 07:32 Freq: Status: Active Protocol: Document 09/03/20 13:30 AMB (Rec: 09/04/20 15:50 AMB [email or web address]) Balance Tests mCTSIB mCTSIB Position 1 30 sec mCTSIB Position 2 30 sec Single Limb Standing Single Limb- Right 10 seconds Single Limb- Left 10 seconds- LOB getting into position but able to self correct PT-OP-E Functional Tests Start: 09/03/20 07:32 Freq: Status: Active Protocol: Document 09/03/20 13:30 AMB (Rec: 09/04/20 15:50 AMB [email or web address]) Functional Tests 2 Minute Walk Test Distance 417 Device Used none Comments 396 feet with dual tasking of counting 10 Meter Walk Test Distance 6 seconds Device Used none PT-OP-G Mobility & Gait Start: 09/03/20 07:32 Freq: Status: Active Protocol: Document 09/03/20 13:30 AMB (Rec: 09/04/20 15:50 AMB [email or web address]) OP Gait Assessment Comments Gait Comments Generally stiff gait pattern with no arm swing, better when not made to pathfind, one step instructions best, pt fails with multistep instructions PT-OP-J Posture/Palpation/Skin Start: 09/03/20 07:32 Freq: Status: Active Protocol: Document 09/03/20 13:30 AMB (Rec: 09/04/20 15:50 AMB [email or web address]) Posture Evaluation Comments Posture Comments Flat lumbar spine and forward head in standing PT-OP-M Strength Start: 09/03/20 07:32 Freq: Status: Active Protocol: Document 09/03/20 13:30 AMB (Rec: 09/04/20 15:50 AMB [email or web address]) Hip Strength Hip Manual Muscle Testing Right Flexion (L2) 4+ Good+ Extension (S1) 4 Good Abduction 4+ Good+ Adduction 4+ Good+ Left Flexion (L2) 4+ Good+ Extension (S1) 4 Good Abduction 4+ Good+ Adduction 4+ Good+ Knee Strength Knee Manual Muscle Testing Right Flexion (S2) 5 Normal Extension (L3) 5 Normal Left Flexion (S2) 5 Normal PT-OP-Q Treatments Start: 09/03/20 07:32 Freq: Status: Active Protocol: Document 09/19/20 13:30 AMB (Rec: 09/20/20 08:16 AMB [email or web address]) Therapeutic Exercises Sitting Exercises 1 Sitting Exercise Name marching on therapy ball with alt arm flexion Reps/Minutes 5 min Standing Exercises 1 Standing Exercise Name lunges Reps/Minutes 10x2 Comments forward with alt arms Other Exercises 7 Other Exercise Name thread the needle Reps/Minutes 2x10 4 Other Exercise Name bird dog Reps/Minutes 10 1 Other Exercise Name afshin pose Reps/Minutes 30x3 Neuro Re-Education Treatment Other Activities 4 Details weight shift in stride stance Comments with opposite arm swing. 3 Details stepping laterally Comments large knee iwht UE abduction 2 Details stepping forward Comments large knee, with UE abduction 1 Details floor to ceiling Comments 5 PT-OP-T Assessment and Plan Start: 09/03/20 07:32 Freq: Status: Active Protocol: Document 09/19/20 13:30 AMB (Rec: 09/20/20 08:16 AMB [email or web address]) Physical Therapy Assessment Goals Two Impairment Gait Short Term Goal (STG) Mendel will ambulate over smooth terrain with good speed and arm swing. STG Duration MET Custodial Goal (LTG) Mendel will ambulate over uneven terrain without loss of balance and with good speed and arm swing. LTG Duration NOT CONSISTENTLY MET One Impairment lacks exercise program Short Term Goal (STG) Mednel will be consitent with an appropriate HEP that he does with his /caregiver. STG Duration MET Assessment Summary Assessment Mendel was able to to do his exercises with verbal and physical cues, but Kamran should be able to help him do this appropriately. Physical Therapy Plan Discharge Physical Therapy Discharge Reasons Patient Request
== END 2020-09-21 13:08 ==
LOC: PHYS 13:30
PROVIDERS: PCP Student in an Organized Health Care Education/Training Program; Referring Provider Student in an Organized Health Care Education/Training Program; Visit Provider Student in an Organized Health Care Education/Training Program
DX: F03.90 Unspecified dementia, unspecified severity, without behavioral disturbance, psychotic disturbance, mood disturbance, and anxiety (principal); W88.8XXA Exposure to other ionizing radiation, initial encounter; R53.1 Weakness; R26.89 Other abnormalities of gait and mobility
CPT/HCPCS: 97110; 97112; 97162

== ENCOUNTER → 2022-04-22 15:23 | Outpatient (CLI) | payer OTHER, SELFPAY ==
[2022-04-22 16:20] LABS: Add Manual Diff / Slide Review NO; Basophils Absolute Auto 0 /uL (0-100); Eosinophils Absolute Auto 100 /uL (0-450); Eosinophils Percent Auto 2.3 % (2-4); Hematocrit 43.1 % (41-53); Lymphocytes Absolute Auto 900 /uL (1100-4500); Lymphocytes Percent Auto 20.2 % (25-40); Mean Corpuscular HGB Conc 34.8 % (30-36); Mean Corpuscular Hemoglobin 31.8 PG (26-34); Mean Corpuscular Volume 91.2 fL (80-100); Monocytes Absolute Auto 400 /uL (0-900); Monocytes Percent Auto 9.1 % (3-14); Neutrophils Absolute Auto 3000 /uL (1500-7000); Neutrophils Percent Auto 67.4 % (50-75); Platelet Count 189 X10^3/uL (150-400); Red Blood Cell Count 4.72 X10^6/uL (4.5-5.9); Red Cell Distribution Width 13.3 % (11.6-14.8); White Blood Cell Count 4.4 X10^3/uL (4.5-11.0)
[2022-04-22 17:24] LABS: Alanine Aminotransferase 35 IU/L (<50); Albumin 4.8 g/dL (3.5-5.0); Albumin Globulin Ratio 1.4 (1.0-2.8); Alkaline Phosphatase 81 U/L (38-126); Aspartate Aminotransferase 30 IU/L (17-59); Bilirubin Total 0.4 mg/dL (0.2-1.3); Blood Urea Nitrogen 17 mg/dL (9-20); Calcium 9.7 mg/dL (8.4-10.2); Carbon Dioxide 28 mmol/L (22-32); Chloride 102 mmol/L (98-107); Estimated Glomerular Filt Rate > 60 mL/min (>60); Globulin 3.4 g/dL (1.7-4.1); Glucose 106 mg/dL (80-110); HEMOLYSIS < 15 (0-50); Potassium 4.3 mmol/L (3.4-5.1); Sodium 138 mmol/L (137-145); Total Protein 8.2 g/dL (6.3-8.2)
[2022-04-22 17:49] LABS: Prostate Specific Antigen Scrn 0.196 ng/mL (0.1-4.0)
== END ==
PROVIDERS: PCP Student in an Organized Health Care Education/Training Program; Referring Provider Student in an Organized Health Care Education/Training Program; Visit Provider Student in an Organized Health Care Education/Training Program
DX: C43.4 Malignant melanoma of scalp and neck (principal); E78.5 Hyperlipidemia, unspecified; F03.90 Unspecified dementia, unspecified severity, without behavioral disturbance, psychotic disturbance, mood disturbance, and anxiety; W88.8XXA Exposure to other ionizing radiation, initial encounter; Z79.899 Other long term (current) drug therapy; Z12.5 Encounter for screening for malignant neoplasm of prostate
CPT/HCPCS: 36415; 80053; 85025; G0103